=== PATIENT | male | born 1960 | race Two or more races ===

== ENCOUNTER 2020-02-13 17:31 | Inpatient (IN) | payer BC, OTHER ==
[2020-02-12 23:50] VITALS: BP 111/70
[~2020-02-13] VITALS: Ht 167.6 cm; Wt 99.1 kg
[2020-02-13] MEDS ORDERED: ENOXAPARIN SOD 100 MG/1 ML SYRINGE SC ONE (18:30)
[2020-02-13 18:58] LABS: Basophils # (auto) 0.1 10 ^3/uL (0-0.2); Eosinophils # (auto) 0.1 10 ^3/uL (0-0.8); Hemoglobin 16.8 g/dL (13.5-17.5); Lymphocytes # (auto) 1.5 10 ^3/uL (0.4-5.4); Monocytes # (auto) 0.6 10 ^3/uL (0-1.3); Nucleated Red Blood Cells % 0.2 %
[2020-02-13 19:00] LABS: Basophils % (auto) 0.8 % (0.0-2.0); Eosinophils % (auto) 0.9 % (0.0-7.0); Lymphocytes % (auto) 15.9 % (10.0-50.0); Mean Corpuscular Hemoglobin 26.2 pg (28.0-32.0); Mean Corpuscular Hgb Conc. 31.4 g/dL (32.0-36.0); Mean Corpuscular Volume 83.6 fL (80.0-100.0); Monocytes % (auto) 6.5 % (0.0-12.0); Neutrophils % (auto) 75.9 % (37.0-80.0); Platelet Count (auto) 346 10^3/uL (140-450); Red Blood Cells 6.39 10^6/uL (4.5-5.90); Red Cell Distribution Width 14.3 % (11.8-14.3); White Blood Cell 9.3 10^3/uL (4.4-10.8)
[2020-02-13 19:06] LABS: Hematocrit 53.3 % (41.0-53.0)
[2020-02-13 19:57] LABS: Chloride 107 mmol/L (98-107); Sodium 139 mmol/L (136-145)
[2020-02-13 20:48] LABS: Alanine Aminotransferase 67 U/L (16-61); Albumin 3.7 g/dL (3.4-5.0); Alkaline Phosphatase 107 U/L (45-117); Anion Gap 12 (5-15); Aspartate Aminotransferase 57 U/L (15-37); BUN/Creatinine Ratio 18.4; Bilirubin, Total 1.2 mg/dL (0.2-1.0); Blood Urea Nitrogen 18 mg/dL (7-18); Carbon Dioxide 20 mmol/L (21-32); GFR African American 100 mL/min; GFR Non-African American 83 mL/min; Glucose 99 mg/dL (74-106); Total Protein 8.8 g/dL (6.4-8.2)
[2020-02-13] MEDS ORDERED: HYDROcodone-ACET 5/325MG TAB PO PRN (22:30)
[2020-02-13] MEDS ORDERED: cloNIDine HCL 0.1 MG TAB PO PRN (22:30)
[2020-02-13] MEDS ORDERED: ACETAMINOPHEN 325 MG TAB PO PRN (22:30)
[2020-02-13] MEDS ORDERED: TEMAZEPAM 15 MG CAP PO PRN (22:30)
[2020-02-13] MEDS ORDERED: ONDANSETRON HCL 4 MG/2 ML VIAL IV PRN (22:30)
[2020-02-14] VITALS: BP 111/70
[2020-02-14 01:35] LABS: INR 1.21 (0.9-1.15); Partial Thromboplastin Time 36.3 sec (23.0-31.2)
[2020-02-14 05:30] VITALS: BP 116/65
[2020-02-14 06:21] LABS: Basophils # (auto) 0 10 ^3/uL (0-0.2); Basophils % (auto) 0.5 % (0.0-2.0); Eosinophils # (auto) 0.1 10 ^3/uL (0-0.8); Eosinophils % (auto) 1.4 % (0.0-7.0); Hematocrit 48.9 % (41.0-53.0); Hemoglobin 15.6 g/dL (13.5-17.5); Lymphocytes # (auto) 1.4 10 ^3/uL (0.4-5.4); Lymphocytes % (auto) 20.5 % (10.0-50.0); Mean Corpuscular Hemoglobin 26.7 pg (28.0-32.0); Mean Corpuscular Volume 83.4 fL (80.0-100.0); Monocytes # (auto) 0.6 10 ^3/uL (0-1.3); Monocytes % (auto) 8.8 % (0.0-12.0); Neutrophils # (auto) 4.8 10 ^3/uL (1.6-8.6); Neutrophils % (auto) 68.8 % (37.0-80.0); Nucleated Red Blood Cells % 0.5 %; Platelet Count (auto) 283 10^3/uL (140-450); Red Blood Cells 5.86 10^6/uL (4.5-5.90); Red Cell Distribution Width 14.3 % (11.8-14.3); White Blood Cell 6.9 10^3/uL (4.4-10.8)
[2020-02-14 07:21] LABS: Albumin 3.1 g/dL (3.4-5.0); BUN/Creatinine Ratio 20.6; Bilirubin, Total 0.9 mg/dL (0.2-1.0); Calcium 9.8 mg/dL (8.5-10.1); Total Protein 7.3 g/dL (6.4-8.2)
[2020-02-14 09:00] VITALS: BP 115/69
[2020-02-14] MEDS: FAMOTIDINE 20 MG TAB PO SCH ×2 (09:32→21:52)
[2020-02-14] MEDS ORDERED: ENOXAPARIN SOD 100 MG/1 ML SYRINGE SC SCH (10:00)
[2020-02-14 13:00] VITALS: BP 102/68
[2020-02-14 17:00] VITALS: BP 110/70
[2020-02-14] MEDS: APIXABAN 5 MG TAB PO SCH (21:52)
[2020-02-14 23:34] VITALS: BP 116/71
[2020-02-15] VITALS (7 sets, daily range): BP systolic 115–122; BP diastolic 70–75
[2020-02-15 06:31] LABS: Basophils # (auto) 0.1 10 ^3/uL (0-0.2); Basophils % (auto) 0.9 % (0.0-2.0); Eosinophils # (auto) 0.1 10 ^3/uL (0-0.8); Eosinophils % (auto) 1.4 % (0.0-7.0); Hematocrit 46.4 % (41.0-53.0); Hemoglobin 15.6 g/dL (13.5-17.5); Lymphocytes # (auto) 1.3 10 ^3/uL (0.4-5.4); Lymphocytes % (auto) 18.4 % (10.0-50.0); Mean Corpuscular Hemoglobin 27.6 pg (28.0-32.0); Mean Corpuscular Hgb Conc. 33.6 g/dL (32.0-36.0); Mean Corpuscular Volume 82.1 fL (80.0-100.0); Monocytes # (auto) 0.6 10 ^3/uL (0-1.3); Monocytes % (auto) 7.7 % (0.0-12.0); Neutrophils # (auto) 5.2 10 ^3/uL (1.6-8.6); Neutrophils % (auto) 71.6 % (37.0-80.0); Nucleated Red Blood Cells % 0.3 %; Platelet Count (auto) 281 10^3/uL (140-450); Red Blood Cells 5.65 10^6/uL (4.5-5.90); Red Cell Distribution Width 14.4 % (11.8-14.3); White Blood Cell 7.3 10^3/uL (4.4-10.8)
[2020-02-15] MEDS: APIXABAN 5 MG TAB PO SCH ×2 (09:56→22:35)
[2020-02-15] MEDS: FAMOTIDINE 20 MG TAB PO SCH ×2 (09:56→22:35)
[2020-02-15] MEDS ORDERED: IOHEXOL 350 MG/ML 100ML IJ ONE ×2 (12:11→12:54)
[2020-02-16 05:00] VITALS: BP 119/73
[2020-02-16 09:00] VITALS: BP 114/76
[2020-02-16] MEDS: APIXABAN 5 MG TAB PO SCH ×2 (10:13→22:01)
[2020-02-16] MEDS: FAMOTIDINE 20 MG TAB PO SCH ×2 (10:13→22:01)
[2020-02-16] MEDS ORDERED: AZITHROMYCIN 250 MG TAB PO ONE (12:30)
[2020-02-16 12:40] VITALS: BP 113/72
[2020-02-16 17:01] VITALS: BP 114/74
[2020-02-16 20:00] VITALS: BP 120/70
[2020-02-16 22:21] VITALS: BP 120/70
[2020-02-17 05:30] VITALS: BP 110/64
[2020-02-17] MEDS: AZITHROMYCIN 250 MG TAB PO SCH (09:48)
[2020-02-17] MEDS: FAMOTIDINE 20 MG TAB PO SCH ×2 (09:48→22:10)
[2020-02-17] MEDS: APIXABAN 5 MG TAB PO SCH ×2 (09:48→22:11)
[2020-02-17 17:00] VITALS: BP 124/77
[2020-02-17 20:00] VITALS: BP 110/75
[2020-02-17 22:00] VITALS: BP 110/75
[2020-02-18 05:00] VITALS: BP 117/71
[2020-02-18 08:10] VITALS: BP 112/65
[2020-02-18 09:00] VITALS: BP_SYST 112; BP_SYST 168; BP_DIAS 65
[2020-02-18] MEDS: FAMOTIDINE 20 MG TAB PO SCH (09:31)
[2020-02-18] MEDS: AZITHROMYCIN 250 MG TAB PO SCH (09:31)
[2020-02-18] MEDS: APIXABAN 5 MG TAB PO SCH (09:31)
[2020-02-18 13:00] VITALS: BP 116/65
[2020-02-21] MEDS ORDERED: APIXABAN 5 MG TAB PO SCH (22:00)
== END 2020-02-18 17:20 | disposition home or self-care (01) | DRG 299 ==
LOC: ER 17:31 → OVERFLOW 17:32 → WEST WING 23:19
PROVIDERS: ADMIT Nurse Practitioner; ATTEND Internal Medicine
DX: I82.411 Acute embolism and thrombosis of right femoral vein (principal); I26.99 Other pulmonary embolism without acute cor pulmonale; J96.01 Acute respiratory failure with hypoxia; I82.441 Acute embolism and thrombosis of right tibial vein; E66.9 Obesity, unspecified; I82.432 Acute embolism and thrombosis of left popliteal vein; Z20.828 Contact with and (suspected) exposure to other viral communicable diseases; I10 Essential (primary) hypertension; Z79.01 Long term (current) use of anticoagulants; Z86.19 Personal history of other infectious and parasitic diseases; Z86.711 Personal history of pulmonary embolism; Z86.718 Personal history of other venous thrombosis and embolism; Z68.35 Body mass index [BMI] 35.0-35.9, adult; Z79.899 Other long term (current) drug therapy
CPT/HCPCS: 36415; 71275; 80053; 85025; 85610; 85730; 93306; 93970; G0378